=== PATIENT | female | born 1975 | race African-American/Black ===

== ENCOUNTER 2019-07-02 05:51 | Inpatient (IN) | payer MEDICARE, MEDICAID ==
[~2019-07-02] VITALS: Ht 181.6 cm; Wt 100.7 kg
[2019-07-02] MEDS ORDERED: SODIUM CHLORIDE 0.9% 1,000 ML IV ONE ×2 (07:01→08:28)
[2019-07-02] MEDS ORDERED: ACETAMINOPHEN 325MG TABLET PO STA (07:01)
[2019-07-02] MEDS ORDERED: ONDANSETRON HCL 4MG/2ML INJ IV ONE (07:15)
[2019-07-02] MEDS ORDERED: KETOROLAC 30MG/ML VIAL IV ONE (07:15)
[2019-07-02 07:56] LABS: HEMATOCRIT. 31.8 % (36.0-48.0); HEMOGLOBIN. 10.2 g/dL (12.0-16.0); MEAN CORPUSCULAR HEMOGLOBIN 24.1 pg (28.0-32.0); MEAN CORPUSCULAR VOLUME 74.7 fL (81.0-99.0); MEAN PLATELET VOLUME 8.7 fl (7.4-10.4); PLATELET 305 x1000/uL (130-400); RED BLOOD CELL COUNT 4.25 mill/uL (4.2-5.4); RED CELL DISTRIBUTION WIDTH 16.7 % (11.6-14.6)
[2019-07-02 08:04] LABS: CHLORIDE 104 mEq/L (98-107); INR 1.1; PROTHROMBIN TIME 11.4 sec (9.6-11.0)
[2019-07-02 08:17] LABS: PLATELET ESTIMATE NORMAL
[2019-07-02] MEDS ORDERED: PIPERACILLIN/TAZOBACTAM 3.375GM/50ML PREMIX IV ONE (08:30)
[2019-07-02] MEDS: VANCOMYCIN 1 G PREMIX 200 ML IV SCH (08:51)
[2019-07-02] MEDS ORDERED: PIPERACILLIN/TAZ 3.375G PREMIX 50 ML IV NR (11:00)
[2019-07-02 14:38] LABS: CLARITY URINE CLOUDY (CLEAR); COLOR URINE DARK YELLOW (YELLOW); KETONES URINE TRACE (NEGATIVE); LEUKOCYTE ESTERASE URINE 1+ (NEGATIVE); NITRITE URINE NEGATIVE (NEGATIVE); OCCULT BLOOD URINE NEGATIVE (NEGATIVE); PH URINE 5.5 (4.5-8.0); PROTEIN URINE 2+ (NEGATIVE); SPECIFIC GRAVITY URINE 1.036 (1.005-1.030)
[2019-07-02 20:56] VITALS: BP 125/65
[2019-07-02 21:00] VITALS: BP 153/55
[2019-07-02 22:00] VITALS: BP 109/56
[2019-07-02] MEDS ORDERED: ONDANSETRON HCL 4MG/2ML INJ IV PRN (23:30)
[2019-07-03] VITALS (11 sets, daily range): BP systolic 112–164; BP diastolic 55–106
[2019-07-03] MEDS ORDERED: PIPERACILLIN/TAZ 2.25G PREMIX 50 ML IV SCH
[2019-07-03] MEDS ORDERED: FERR-71 MT (00:02)
[2019-07-03] MEDS ORDERED: LORA10TA7 PO (00:07)
[2019-07-03] MEDS ORDERED: ERGO2000 MT (00:07)
[2019-07-03] MEDS: ACETAMINOPHEN 325MG TABLET PO PRN ×2 (01:56→12:09)
[2019-07-03] MEDS: DEXT 5%/0.45% NACL 1000ML 1,000 ML IV SCH ×2 (02:14→15:50)
[2019-07-03] MEDS: PIPERACILLIN/TAZOBACTAM 3.375 G in DEXT 5% WATER 100 ML IV SCH ×3 (04:51→17:29)
[2019-07-03 06:58] LABS: BASOPHILS % 0.2 % (0.0-2.0); EOSINOPHILS % 11.3 % (0.0-5.0); HEMATOCRIT. 26.4 % (36.0-48.0); HEMOGLOBIN. 8.6 g/dL (12.0-16.0); LYMPHOCYTES % 37.4 % (20.0-50.0); MEAN CORPUSCULAR HEMOGLOBIN 24.3 pg (28.0-32.0); MEAN CORPUSCULAR VOLUME 74.5 fL (81.0-99.0); MEAN PLATELET VOLUME 8.3 fl (7.4-10.4); MONOCYTES % 9.2 % (2.0-8.0); NEUTROPHILS % 41.9 % (40.0-76.0); PLATELET 268 x1000/uL (130-400); RED BLOOD CELL COUNT 3.54 mill/uL (4.2-5.4); RED CELL DISTRIBUTION WIDTH 16.4 % (11.6-14.6)
[2019-07-03 07:41] LABS: CHLORIDE 109 mEq/L (98-107)
[2019-07-03] MEDS ORDERED: POTASSIUM CHLORIDE 20MEQ TABLET SR PO NR (08:30)
[2019-07-03] MEDS ORDERED: KCL 20MEQ/100ML PREMIX 100 ML IV NR ×2 (09:00→11:00)
[2019-07-03 11:41] LABS: CLARITY URINE CLEAR (CLEAR); COLOR URINE YELLOW (YELLOW); KETONES URINE NEGATIVE (NEGATIVE); LEUKOCYTE ESTERASE URINE NEGATIVE (NEGATIVE); NITRITE URINE NEGATIVE (NEGATIVE); OCCULT BLOOD URINE NEGATIVE (NEGATIVE); PH URINE 5.5 (4.5-8.0); PROTEIN URINE NEGATIVE (NEGATIVE); SPECIFIC GRAVITY URINE 1.012 (1.005-1.030); UROBILINOGEN URINE 0.2 E.U./dL (0.2-1.0)
[2019-07-03] MEDS ORDERED: ZOLPIDEM TARTRATE 5MG TABLET PO SCH (21:00)
[2019-07-03] MEDS ORDERED: ATORVASTATIN CALCIUM 40MG TABLET PO SCH (21:00)
[2019-07-03] MEDS: LACTULOSE 20G/30ML UDC PO SCH (21:04)
[2019-07-04] VITALS (7 sets, daily range): BP systolic 132–158; BP diastolic 67–79
[2019-07-04] MEDS: PIPERACILLIN/TAZOBACTAM 3.375 G in DEXT 5% WATER 100 ML IV SCH (01:54)
[2019-07-04 06:11] LABS: HEMATOCRIT. 26.8 % (36.0-48.0); HEMOGLOBIN. 8.7 g/dL (12.0-16.0); MEAN CORPUSCULAR HEMOGLOBIN 24.1 pg (28.0-32.0); MEAN CORPUSCULAR VOLUME 74.6 fL (81.0-99.0); PLATELET 285 x1000/uL (130-400); RED CELL DISTRIBUTION WIDTH 16.4 % (11.6-14.6)
[2019-07-04 06:59] LABS: CHLORIDE 110 mEq/L (98-107)
[2019-07-04] MEDS: LACTULOSE 20G/30ML UDC PO SCH (07:47)
[2019-07-04] MEDS: DEXT 5%/0.45% NACL 1000ML 1,000 ML IV SCH (07:48)
[2019-07-04 11:17] LABS: PLATELET ESTIMATE NORMAL
== END 2019-07-04 11:50 | disposition home or self-care (01) | DRG 690 ==
LOC: ER 05:51 → 5EST 09:03 → EDBEDREQ 09:07 → ENRESERV 19:44
PROVIDERS: ADMIT Internal Medicine; ATTEND Internal Medicine
DX: N39.0 Urinary tract infection, site not specified (principal); D64.9 Anemia, unspecified; E87.6 Hypokalemia; E86.0 Dehydration; E03.9 Hypothyroidism, unspecified; H54.62 Unqualified visual loss, left eye, normal vision right eye; D25.2 Subserosal leiomyoma of uterus; F32.9 Major depressive disorder, single episode, unspecified; M54.9 Dorsalgia, unspecified; E78.5 Hyperlipidemia, unspecified; J45.909 Unspecified asthma, uncomplicated
CPT/HCPCS: 36415; 71045; 74018; 76700; 76856; 80048; 80053; 81003; 83605; 83880; 84145; 85025; 87804; 93005; 93970; 99285; J1885; J2405; J2543; J3370; J3480; J7030; J7060

== ENCOUNTER 2023-03-15 05:51 | Emergency (ER) | payer MEDICARE, MEDICAID ==
[~2023-03-15] VITALS: Ht 175.3 cm; Wt 116.6 kg
[~2023-03-15 05:51] MED LIST: ERGO2000 MT; FERR-71 MT; LORA10TA7 PO
[2023-03-15 06:10] VITALS: TEMP 98.9; O2SAT 98
[2023-03-15 06:49] LABS: CLARITY URINE CLOUDY (CLEAR); COLOR URINE RED (YELLOW); GLUCOSE URINE NEGATIVE (NEGATIVE); KETONES URINE NEGATIVE (NEGATIVE); LEUKOCYTE ESTERASE URINE TRACE (NEGATIVE); NITRITE URINE NEGATIVE (NEGATIVE); OCCULT BLOOD URINE 3+ (NEGATIVE); PROTEIN URINE 1+ (NEGATIVE); SPECIFIC GRAVITY URINE 1.014 (1.005-1.030); UROBILINOGEN URINE 0.2 E.U./dL (0.2-1.0)
[2023-03-15 06:52] LABS: BACTERIA URINE NONE SEEN; RBC URINE TNTC /hpf (0-2); SQUAMOUS EPITHELIAL CELL URINE NONE SEEN /lpf (RARE/1+); YEAST URINE NONE SEEN
[2023-03-15 06:59] LABS: UCG SCREEN NEGATIVE
[2023-03-15 07:38] LABS: CHLORIDE 109 mEq/L (98-107); INDEX HEMOLYSI 1 (1-3); INDEX ICTERIC 1 (1-4); INDEX LIPEMIC 1 (1-3); POTASSIUM 3.6 mEq/L (3.5-5.1); SODIUM 140 mEq/L (136-145)
[2023-03-15 07:40] LABS: BASOPHILS % 0.4 % (0.0-2.0); EOSINOPHILS % 2.9 % (0.0-5.0); HEMATOCRIT. 33.6 % (36.0-48.0); HEMOGLOBIN. 10.9 g/dL (12.0-16.0); LYMPHOCYTES % 37.4 % (20.0-50.0); MEAN CORPUSCULAR HGB CONC 32.4 g/dL (31.0-37.0); MEAN CORPUSCULAR VOLUME 80.4 fL (81.0-99.0); MONOCYTES % 5.5 % (2.0-8.0); NEUTROPHILS % 53.8 % (40.0-76.0); PLATELET 331 x1000/uL (130-400); RED BLOOD CELL COUNT 4.18 mill/uL (4.2-5.4); RED CELL DISTRIBUTION WIDTH 15.7 % (11.6-14.6); WHITE BLOOD COUNT 7.2 x1000/uL (4.5-11.0)
[2023-03-15 07:41] LABS: CALCIUM 8.3 mg/dL (8.5-10.1)
[2023-03-15 07:47] LABS: ALANINE AMINOTRANSFERASE 27 IU/L (13-61); ALBUMIN 3.7 g/dL (3.4-5.0); ASPARTATE AMINOTRANSFERASE 13 IU/L (15-37); BILIRUBIN TOTAL 0.4 mg/dL (0.1-1.0); CARBON DIOXIDE 27 mEq/L (21-32); CREATININE 0.6 mg/dL (0.6-1.3); GLUCOSE 86 mg/dL (70-105); PROTEIN TOTAL 7.6 g/dL (6.0-8.3); UREA NITROGEN BLOOD 7 mg/dL (7-21)
[2023-03-15] MEDS ORDERED: IBUP-2030 PO (09:52)
[2023-03-15 10:00] VITALS: BP 126/52; PULSE 91; RESP 15
== END 2023-03-15 10:23 | disposition home or self-care (01) ==
LOC: ER 05:51
DX: N84.0 Polyp of corpus uteri (principal); D25.9 Leiomyoma of uterus, unspecified; Z98.890 Other specified postprocedural states
CPT/HCPCS: 36415; 76830; 76856; 80053; 81003; 81025; 84702; 85025; 86850; 86900; 99284

== ENCOUNTER 2024-08-07 18:20 | Inpatient (IN) | payer MEDICARE, MEDICAID ==
[~2024-08-07] VITALS: Ht 180.3 cm; Wt 109.3 kg
[~2024-08-07 18:20] MED LIST changes: +ABIL10 PO; +AMLO10TA80 PO; +ATOR40TA70 PO; -ERGO2000 MT; -FERR-71 MT; -LORA10TA7 PO; +SERT50TA PO
[2024-08-07 19:00] VITALS: BP 144/66; PULSE 92; RESP 19; TEMP 37
[2024-08-07] MEDS ORDERED: ONDANSETRON 4MG ODT PO PRN (19:15)
[2024-08-07 20:00] VITALS: BP 157/66; PULSE 92; RESP 19; TEMP 37.2; O2SAT 96
[2024-08-07] MEDS: ACETAMINOPHEN 325MG TABLET PO PRN (20:32)
[2024-08-07] MEDS: SENNOSIDES/DOCUSATE SOD 8.6/50MG TABLET PO SCH (21:00)
[2024-08-07] MEDS: ASPIRIN 81MG TABLET PO SCH (21:46)
[2024-08-07] MEDS: ATORVASTATIN CALCIUM 40MG TABLET PO SCH (21:46)
[2024-08-08 07:14] LABS: BASOPHILS % 0.3 % (0.0-2.0); EOSINOPHILS % 2.9 % (0.0-5.0); HEMATOCRIT. 26.6 % (36.0-48.0); HEMOGLOBIN. 8.7 g/dL (12.0-16.0); LYMPHOCYTES % 23.1 % (20.0-50.0); MEAN CORPUSCULAR HEMOGLOBIN 26.2 pg (28.0-32.0); MEAN CORPUSCULAR HGB CONC 32.6 g/dL (31.0-37.0); MEAN CORPUSCULAR VOLUME 80.3 fL (81.0-99.0); MEAN PLATELET VOLUME 7.9 fl (7.4-10.4); MONOCYTES % 4.1 % (2.0-8.0); NEUTROPHILS % 69.6 % (40.0-76.0); PLATELET 370 x1000/uL (130-400); RED BLOOD CELL COUNT 3.31 mill/uL (4.2-5.4); WHITE BLOOD COUNT 9.8 x1000/uL (4.5-11.0)
[2024-08-08 07:23] LABS: CHLORIDE 103 mEq/L (98-107); POTASSIUM 3.5 mEq/L (3.5-5.1); SODIUM 143 mEq/L (136-145)
[2024-08-08 07:25] LABS: CARBON DIOXIDE 29 mEq/L (21-32)
[2024-08-08 07:26] LABS: CALCIUM 9.2 mg/dL (8.7-10.4)
[2024-08-08 07:30] LABS: CREATININE 0.6 mg/dL (0.6-1.0); GLUCOSE 86 mg/dL (70-105)
[2024-08-08 07:31] LABS: UREA NITROGEN BLOOD 7 mg/dL (9-23)
[2024-08-08 07:32] LABS: ALANINE AMINOTRANSFERASE 27 IU/L (10-49); ASPARTATE AMINOTRANSFERASE 25 IU/L (<34)
[2024-08-08 07:33] LABS: BILIRUBIN TOTAL 0.5 mg/dL (0.1-1.0); PREALBUMIN 12.9 mg/dl (10.0-40.0); PROTEIN TOTAL 6.8 g/dL (6.0-8.3)
[2024-08-08 08:00] VITALS: BP 129/65; PULSE 86; RESP 17; TEMP 36.6; O2SAT 95
[2024-08-08] MEDS: FERROUS SULFATE 325MG TABLET PO SCH (09:46)
[2024-08-08] MEDS: SERTRALINE HCL 50MG TABLET PO SCH (09:46)
[2024-08-08] MEDS: MULTIVITAMINS,THER W-MINERALS TABLET PO SCH (09:46)
[2024-08-08] MEDS: ARIPIPRAZOLE 5MG TABLET PO SCH (09:46)
[2024-08-08] MEDS: AMLODIPINE 5MG TABLET PO SCH (09:47)
[2024-08-08] MEDS: LEVOFLOXACIN 250MG TABLET PO SCH (11:59)
[2024-08-08] MEDS: TRAMADOL 50MG TABLET PO PRN (13:30)
[2024-08-08 20:00] VITALS: BP 130/68; PULSE 90; RESP 18; TEMP 36.7; O2SAT 98
[2024-08-08] MEDS: METOPROLOL TARTRATE 25MG TABLET PO SCH (21:10)
[2024-08-09 08:00] VITALS: BP 132/56; PULSE 88; RESP 18; TEMP 36.7; O2SAT 98
[2024-08-09 08:45] VITALS: BP 132/56; PULSE 98; RESP 18; TEMP 36.7; O2SAT 98
[2024-08-09 09:23] LABS: BASOPHILS % 0.6 % (0.0-2.0); EOSINOPHILS % 2.7 % (0.0-5.0); HEMATOCRIT. 27.2 % (36.0-48.0); HEMOGLOBIN. 8.7 g/dL (12.0-16.0); LYMPHOCYTES % 25.6 % (20.0-50.0); MEAN CORPUSCULAR HEMOGLOBIN 25.9 pg (28.0-32.0); MEAN CORPUSCULAR VOLUME 80.8 fL (81.0-99.0); MEAN PLATELET VOLUME 7.6 fl (7.4-10.4); MONOCYTES % 4.5 % (2.0-8.0); NEUTROPHILS % 66.6 % (40.0-76.0); PLATELET 434 x1000/uL (130-400); RED BLOOD CELL COUNT 3.37 mill/uL (4.2-5.4); RED CELL DISTRIBUTION WIDTH 16.3 % (11.6-14.6); WHITE BLOOD COUNT 10.2 x1000/uL (4.5-11.0)
[2024-08-09 09:30] LABS: CHLORIDE 107 mEq/L (98-107); POTASSIUM 3.3 mEq/L (3.5-5.1); SODIUM 144 mEq/L (136-145)
[2024-08-09 09:31] LABS: CARBON DIOXIDE 27 mEq/L (21-32)
[2024-08-09 09:32] LABS: CALCIUM 9.1 mg/dL (8.7-10.4)
[2024-08-09 09:36] LABS: CREATININE 0.5 mg/dL (0.6-1.0)
[2024-08-09 09:37] LABS: GLUCOSE 102 mg/dL (70-105); UREA NITROGEN BLOOD 7 mg/dL (9-23)
[2024-08-09] MEDS: POTASSIUM CHLORIDE 20MEQ TABLET SR PO NR (11:57)
[2024-08-09 17:55] LABS: VITAMIN B12 SERUM 462 pg/mL (211-911)
[2024-08-09 20:00] VITALS: BP 106/56; PULSE 90; RESP 18; TEMP 36.8; O2SAT 96
[2024-08-10 06:38] LABS: BASOPHILS % 0.3 % (0.0-2.0); EOSINOPHILS % 2.9 % (0.0-5.0); HEMOGLOBIN. 8.8 g/dL (12.0-16.0); LYMPHOCYTES % 28.7 % (20.0-50.0); MEAN CORPUSCULAR HEMOGLOBIN 26.3 pg (28.0-32.0); MEAN CORPUSCULAR HGB CONC 32.6 g/dL (31.0-37.0); MEAN CORPUSCULAR VOLUME 80.6 fL (81.0-99.0); MEAN PLATELET VOLUME 7.3 fl (7.4-10.4); MONOCYTES % 5.8 % (2.0-8.0); NEUTROPHILS % 62.3 % (40.0-76.0); PLATELET 429 x1000/uL (130-400); RED BLOOD CELL COUNT 3.35 mill/uL (4.2-5.4); RED CELL DISTRIBUTION WIDTH 16.3 % (11.6-14.6); WHITE BLOOD COUNT 9.2 x1000/uL (4.5-11.0)
[2024-08-10 06:59] LABS: CARBON DIOXIDE 27 mEq/L (21-32); CHLORIDE 107 mEq/L (98-107); POTASSIUM 3.6 mEq/L (3.5-5.1); SODIUM 143 mEq/L (136-145)
[2024-08-10 07:00] LABS: CALCIUM 8.9 mg/dL (8.7-10.4)
[2024-08-10 07:04] LABS: CREATININE 0.5 mg/dL (0.6-1.0); GLUCOSE 91 mg/dL (70-105); IRON 26 ug/dL (50-170)
[2024-08-10 07:05] LABS: UREA NITROGEN BLOOD 7 mg/dL (9-23)
[2024-08-10 07:07] LABS: FOLIC ACID (FOLATE) SERUM 17.65 ng/mL (>5.38); PHOSPHORUS 3.7 mg/dL (2.5-4.9); TOTAL IRON BINDING CAPACITY 384 ug/dl (250-425)
[2024-08-10 07:08] LABS: THYROID STIMULATING HORMONE 2.23 uIU/mL (0.55-4.78)
[2024-08-10 08:00] VITALS: BP 131/55; PULSE 84; RESP 18; TEMP 36.3; O2SAT 100
[2024-08-10] MEDS: CYANOCOBALAMIN 1000MCG/ML VIAL IM SCH (11:20)
[2024-08-10] MEDS ORDERED: FERROUS SULFATE 325MG TABLET PO SCH (13:00)
[2024-08-10 20:00] VITALS: BP 112/62; PULSE 83; RESP 18; TEMP 36.3; O2SAT 97
[2024-08-11 08:00] VITALS: BP 119/60; PULSE 84; RESP 19; TEMP 36.6; O2SAT 96
[2024-08-11] MEDS: ASCORBIC ACID 500 MG TABLET PO SCH (09:37)
[2024-08-11 20:00] VITALS: BP 125/61; PULSE 87; RESP 18; TEMP 36.7; O2SAT 96
[2024-08-12 08:00] VITALS: BP 129/68; PULSE 79; RESP 19; TEMP 36.2; O2SAT 97
[2024-08-12] MEDS ORDERED: NALOXONE HCL 0.4MG/ML VIAL IV PRN (11:15)
[2024-08-12] MEDS ORDERED: BISACODYL 10MG SUPP PR PRN (12:15)
[2024-08-12] MEDS: LACTULOSE 20G/30ML UDC PO SCH (12:46)
[2024-08-12 20:00] VITALS: BP 124/52; PULSE 86; RESP 19; TEMP 36.9; O2SAT 95
[2024-08-13 07:44] LABS: CHLORIDE 107 mEq/L (98-107); POTASSIUM 3.9 mEq/L (3.5-5.1); SODIUM 142 mEq/L (136-145)
[2024-08-13 07:45] LABS: BASOPHILS % 0.3 % (0.0-2.0); CALCIUM 9.2 mg/dL (8.7-10.4); CARBON DIOXIDE 27 mEq/L (21-32); EOSINOPHILS % 2.6 % (0.0-5.0); HEMATOCRIT. 26.1 % (36.0-48.0); HEMOGLOBIN. 8.6 g/dL (12.0-16.0); LYMPHOCYTES % 25.3 % (20.0-50.0); MEAN CORPUSCULAR HEMOGLOBIN 26.3 pg (28.0-32.0); MEAN CORPUSCULAR HGB CONC 32.9 g/dL (31.0-37.0); MEAN CORPUSCULAR VOLUME 80.1 fL (81.0-99.0); MEAN PLATELET VOLUME 7.1 fl (7.4-10.4); MONOCYTES % 4.4 % (2.0-8.0); NEUTROPHILS % 67.4 % (40.0-76.0); PLATELET 479 x1000/uL (130-400); RED BLOOD CELL COUNT 3.27 mill/uL (4.2-5.4); RED CELL DISTRIBUTION WIDTH 16.8 % (11.6-14.6); WHITE BLOOD COUNT 9.7 x1000/uL (4.5-11.0)
[2024-08-13 07:50] LABS: CREATININE 0.7 mg/dL (0.6-1.0); GLUCOSE 85 mg/dL (70-105); UREA NITROGEN BLOOD 8 mg/dL (9-23)
[2024-08-13 08:00] VITALS: BP 131/59; PULSE 81; RESP 18; TEMP 37.2; O2SAT 98
[2024-08-13] MEDS: TRAMADOL 50MG TABLET PO PRN (09:25)
[2024-08-13] MEDS: ERGOCALCIFEROL 50000UNITS CAPSULE PO SCH (17:22)
[2024-08-13 20:00] VITALS: BP 124/60; PULSE 90; RESP 18; TEMP 36.7; O2SAT 96
[2024-08-14 08:00] VITALS: BP 120/68; PULSE 76; RESP 18; TEMP 36.6; O2SAT 95
[2024-08-14] MEDS: POLYETHYLENE GLYCOL 3350 (17GM) 1 DOSE PACK PO SCH (09:20)
[2024-08-14 20:00] VITALS: BP 120/69; PULSE 85; RESP 18; TEMP 36.4; O2SAT 96
[2024-08-15 08:00] VITALS: BP 120/65; PULSE 78; RESP 18; TEMP 36.4; O2SAT 98
[2024-08-15 20:00] VITALS: BP 125/58; PULSE 81; RESP 18; TEMP 36.6; O2SAT 95
[2024-08-16 08:00] VITALS: BP 122/56; PULSE 80; RESP 18; TEMP 35.8; O2SAT 98
[2024-08-16 08:49] VITALS: RESP 18
[2024-08-16 11:20] VITALS: BP 122/56; PULSE 80; TEMP 96.5; O2SAT 98
== END 2024-08-16 16:08 | disposition home health service (06) | DRG 554 ==
PROVIDERS: ADMIT Physical Medicine & Rehabilitation Spinal Cord Injury Medicine; ATTEND Internal Medicine
DX: M16.11 Unilateral primary osteoarthritis, right hip (principal); D64.9 Anemia, unspecified; D72.829 Elevated white blood cell count, unspecified; E66.01 Morbid (severe) obesity due to excess calories; E87.6 Hypokalemia; F32.A Depression, unspecified; G89.29 Other chronic pain; I11.9 Hypertensive heart disease without heart failure; M79.7 Fibromyalgia; Z96.649 Presence of unspecified artificial hip joint; M25.551 Pain in right hip; E55.9 Vitamin D deficiency, unspecified; E66.811 Obesity, class 1; R53.81 Other malaise; R73.9 Hyperglycemia, unspecified; R00.0 Tachycardia, unspecified; Z79.899 Other long term (current) drug therapy; Z88.0 Allergy status to penicillin; Z91.81 History of falling; Z68.33 Body mass index [BMI] 33.0-33.9, adult
CPT/HCPCS: 36415; 73502; 74018; 80048; 80053; 82306; 82607; 82728; 82746; 83036; 83540; 83550; 83735; 84100; 84134; 84443; 85025; 93005; 97110; 97116; 97162; 97166; 97530; 97535; J3420

== ENCOUNTER → 2024-08-26 | Outpatient (CLI) | payer MEDICARE, MEDICAID | END | disposition home or self-care (01) | LOC: RAD 11:51 | DX: M16.0 Bilateral primary osteoarthritis of hip (principal); Z96.641 Presence of right artificial hip joint | CPT/HCPCS: 73502 ==

== ENCOUNTER → 2024-12-16 | Outpatient (CLI) | payer MEDICARE, MEDICAID | END | disposition home or self-care (01) | LOC: RAD 11:50 | DX: M16.11 Unilateral primary osteoarthritis, right hip (principal); M16.12 Unilateral primary osteoarthritis, left hip; Z96.641 Presence of right artificial hip joint; Z98.890 Other specified postprocedural states | CPT/HCPCS: 73502 ==

== ENCOUNTER → 2024-12-20 | Outpatient (CLI) | payer MEDICARE, MEDICAID | END | disposition home or self-care (01) | LOC: MRI 07:19 | DX: M51.360 Other intervertebral disc degeneration, lumbar region with discogenic back pain only (principal); M47.817 Spondylosis without myelopathy or radiculopathy, lumbosacral region; M48.07 Spinal stenosis, lumbosacral region; M46.07 Spinal enthesopathy, lumbosacral region | CPT/HCPCS: 72148 ==